=== PATIENT | male | born 1960 | race Caucasian/White ===

== ENCOUNTER 2022-06-09 11:45 | Emergency (ER) | payer MEDICARE, SELFPAY ==
[2022-06-09 11:58] VITALS: BP 125/62; PULSE 50; RESP 18; TEMP 36.6; O2SAT 97
--- NOTE | 2022-06-09 12:59 | ED.URI ---
HPI - URI/Sore Throat General Chief Complaint: Upper Respiratory Infection Stated Complaint: ear/nose/throat Time Seen by Provider: 06/09/22 12:52 Source: patient and RN notes reviewed Mode of arrival: ambulatory Limitations: no limitations History of Present Illness HPI Narrative: 61-year-old male presents with concern for right ear pain, right dental pain. Reports he has had right upper anterior dental pain for ?a long time?. Reports in the last 2 days his your his started hurting. He reports history of chronic ear infections. He reports yesterday his lower anterior right tooth began to hurt. He reports he felt a knot underneath that tooth. He denies fever, aches, chills, sweats, sinus congestion or drainage, upper respiratory infection symptoms. MD elicited complaint: other (Ear pain, dental pain) Related Data Home Medications Medication Instructions Recorded Confirmed sildenafil 100 mg tablet 100 mg PO DIRECTED 06/09/22 06/09/22 Allergies Allergy/AdvReac Type Severity Reaction Status Date / Time No Known Allergies Allergy Verified 06/09/22 12:04 Review of Systems Review of Systems: CONSTITUTIONAL: Denies malaise, chills, sweats, or fever. EYES: Denies visual changes, redness, or discharge. ENT: Denies rhinorrhea, congestion, sinus pain, and sore throat. Reports right otalgia, bilateral ear fullness or lower dental pain CARDIOVASCULAR: Denies chest pain, palpitations, or edema. RESPIRATORY: Denies cough. Denies dyspnea. GASTROINTESTINAL: Denies abdominal pain, nausea, vomiting, diarrhea SKIN: Denies rash or itching. MUSCULOSKELETAL: Denies myalgia. NEUROLOGIC: Denies headache. All systems reviewed & are unremarkable except as noted in HPI and below PMFSH Comments At time of signature, agree with nursing past medical, surgical, social and family history. There is no relevant family history pertinent to the presenting complaint Exam Narrative: GENERAL: Well-appearing, well-nourished, and in no acute distress. HEAD: Normocephalic EYES: PERRLA, conjunctivae clear ENT: Nares clear, no sinus tenderness. Mucous membranes moist. TM erythematous and bulging bilaterally; no tragal tenderness. Oropharynx not erythematous without lesions. Tonsils not enlarged and without exudate, no drooling, no hoarseness, no trismus, uvula midline. Many missing teeth, broken teeth, caries, no cheek swelling noted, small palpable tender knot noted below tooth number 27 NECK: Supple. No lymphadenopathy CHEST: Clear to auscultation, breath sounds equal. No wheezing, rhonchi, rales, or stridor. No respiratory distress, speaks in full sentences. HEART: Regular rate and rhythm. No murmur heard. SKIN: Warm, dry, no rash. NEURO: Alert and oriented x3. PSYCH: Normal mood and affect Course Course Emergency Course: Patient is aware of diagnosis, understands and agrees to treatment plan. Anticipatory guidance given. Patient agrees to follow-up as directed and is aware of reasons to seek care at the emergency department. Portions of this record may have been created with voice recognition software Level of Care: Express Care Visit Vital Signs Vital signs: Vital Signs Temperature 97.9 F 06/09/22 11:58 Pulse Rate 50 L 06/09/22 11:58 Respiratory Rate 18 06/09/22 11:58 Blood Pressure 125/62 06/09/22 11:58 Pulse Oximetry 97 06/09/22 11:58 Oxygen Delivery Room Air 06/09/22 11:58 Temperature 97.9 F 06/09/22 11:58 Pulse Rate 50 L 06/09/22 11:58 Respiratory Rate 18 06/09/22 11:58 Blood Pressure 125/62 06/09/22 11:58 Pulse Oximetry 97 06/09/22 11:58 Oxygen Delivery Room Air 06/09/22 11:58 Reviewed. MDM - URI/Sore Throat MDM Narrative Medical decision making narrative: Differential diagnosis considered: Dental infection, bacterial infection, sands virus, strep pharyngitis, allergic rhinitis, upper respiratory tract infection, sinusitis, rhinosinusitis, nasopharyngitis. viral pharyngitis, otitis m
== END 2022-06-09 13:03 | disposition home or self-care (01) ==
PROVIDERS: Emergency Provider Nurse Practitioner; PCP Internal Medicine
DX: H66.93 Otitis media, unspecified, bilateral (principal); K04.7 Periapical abscess without sinus; Z95.5 Presence of coronary angioplasty implant and graft; I38 Endocarditis, valve unspecified
CPT/HCPCS: 99203; G0463

== ENCOUNTER 2023-06-01 13:16 | Emergency (ER) | payer MEDICARE, SELFPAY ==
--- NOTE | ~2023-06-01 | XR_ITS ---
EXAMINATION: XR chest 2V DATE: 06/01/2023 14:27 INDICATION: Cough. TECHNIQUE: Frontal and lateral views of the chest were obtained on 3 radiographs. COMPARISON: Chest 2 views 11/29/2015 FINDINGS: There are airspace opacities in right upper lobe and lingula. A calcified right lung nodule is consistent with old granulomatous disease. No pleural effusion or pneumothorax. The heart size is normal. IMPRESSION: 1. Airspace opacities in right upper lobe and lingula, consistent with pneumonia. Reviewed, dictated and finalized at location A. IMPRESSION: 1. Airspace opacities in right upper lobe and lingula, consistent with pneumoni a.
[2023-06-01 13:23] VITALS: BP 123/64; PULSE 68; RESP 16; TEMP 36.7; O2SAT 97
[2023-06-01 13:28] VITALS: BP 123/64; PULSE 68; RESP 16; TEMP 36.7; O2SAT 97
--- NOTE | 2023-06-01 14:15 | ED.GENADULT ---
HPI - General Adult General Chief complaint: Upper Respiratory Infection Stated complaint: Fever/Cough/ear Pain Source: patient Mode of arrival: ambulatory Limitations: no limitations History of Present Illness HPI narrative: Patient presents for evaluation of sick symptoms. He has a history of mastoiditis and indicates he has had two mastoidectomies. He also reports a history of reconstructive surgery of his right tympanic membrane. He has issues where he feels like his ears need ?pop?. He indicates last year he was treated for a respiratory infection. He was given antibiotics which also seem to treat a dental infection at the same time. The majority of his symptoms improved however he felt like antibiotic duration of therapy was not long enough. He has had some chronic respiratory symptoms since that time. Over last 10 days he has experienced a fever, productive cough of green sputum, wheezing, and a ?gurgling? sensation on the right side of his chest. Feels like his left ear needs to pop. He denies any nausea, vomiting, diarrhea. He smokes a few cigarettes per day. He indicates he has the ?beginning stages of COPD . No recent sick contacts to his knowledge. He states his current symptoms are consistent with those he had in the past with walking pneumonia . Related Data Home Medications Medication Instructions Recorded Confirmed carbamazepine 200 mg tablet mg 06/01/23 clopidogrel 75 mg tablet mg 06/01/23 escitalopram oxalate 10 mg tablet mg 06/01/23 ezetimibe 10 mg tablet mg 06/01/23 levothyroxine 50 mcg tablet mcg 06/01/23 risperidone 1 mg tablet mg 06/01/23 sildenafil 100 mg tablet mg 06/01/23 trazodone 150 mg tablet mg 06/01/23 Allergies Allergy/AdvReac Type Severity Reaction Status Date / Time No Known Allergies Allergy Verified 06/09/22 12:04 Review of Systems Review of Systems: CONSTITUTIONAL: Reports fever. Denies chills, or sweats. EYES: Denies visual changes, redness, or discharge. ENT: Reports sensation that his left ear needs to pop. Reports chronic hearing deficits on the right. CARDIOVASCULAR: Denies chest pain, palpitations, or edema. RESPIRATORY: Reports cough, wheezing, and ?gurgling sensation? in his chest. GASTROINTESTINAL: Denies abdominal pain, nausea, vomiting, or diarrhea. GENITOURINARY: Denies dysuria or hematuria. SKIN: Denies rash or itching. MUSCULOSKELETAL: Denies back pain, joint pain, or myalgia. NEUROLOGIC: Denies headache, numbness, dizziness, or weakness. PSYCHIATRIC: Denies anxiety or depression. [facility] Past Medical History Medical History (Updated 06/01/23 @ 14:56 by MITCH Freire, ) Bipolar disorder Cholesteatoma COPD (chronic obstructive pulmonary disease) Mastoiditis Surgical History Surgical History History of mastoidectomy Family History Family History Mother Family history non-contributory Social History Social History Smoking packs per day: 0.1 Smoking cigarettes per day: 2.0 Smoking status: Current every day smoker Substance use: current Substance use type: marijuana Last use: former use of cocaine-last used over 35 yrs ago Living arrangements: alone Gender identity (if verbalized by the patient): Male Spiritual care concerns: No Exam Narrative: GENERAL: Well-appearing, well-nourished, and in no acute distress. HEAD: Normocephalic, atraumatic. EYES: PERRLA and EOMI. ENT: Nares clear, no rhinorrhea or epistaxis. Mucous membranes moist. Oropharynx without tonsillar hypertrophy exudate or other lesions. There is opacification noted to left tympanic membrane NECK: Supple. No adenopathy or masses. No carotid bruits or JVD CHEST: Cough present on exam. Wheezing and rales present bilaterally. HEART: Regular rate and rhythm. N
== END 2023-06-01 15:00 | disposition home or self-care (01) ==
PROVIDERS: Emergency Provider Nurse Practitioner; PCP Internal Medicine
DX: J18.9 Pneumonia, unspecified organism (principal); J44.9 Chronic obstructive pulmonary disease, unspecified; F17.210 Nicotine dependence, cigarettes, uncomplicated; Z79.899 Other long term (current) drug therapy
CPT/HCPCS: 71046; 99213; G0463

== ENCOUNTER 2024-01-17 15:40 | Emergency (ER) | payer MEDICARE, SELFPAY ==
--- NOTE | ~2024-01-17 | XR_ITS ---
EXAMINATION: XR chest 2V DATE: 01/17/2024 16:21 INDICATION: Cough. TECHNIQUE: Frontal and lateral views of the chest were obtained. COMPARISON: Chest 2 views 06/01/2023 FINDINGS: A calcified left lung nodule is consistent with old granulomatous disease. No pleural effus ion or pneumothorax. The heart size is normal. There is an expansile lytic lesion of right sixth rib. IMPRESSION: 1. Expansile lytic lesion of right sixth rib, consistent with metastatic disease versus multiple myel yudelka. Chest CT with contrast is recommended. Reviewed, dictated and finalized at location B. IMPRESSION: 1. Expansile lytic lesion of right sixth rib, consistent with metastatic diseas e versus multiple myeloma. Chest CT with contrast is recommended.
[2024-01-17 15:48] VITALS: BP 108/56; PULSE 64; RESP 20; TEMP 36.3; O2SAT 96
--- NOTE | 2024-01-17 15:59 | ED.URI ---
HPI - URI/Sore Throat General Chief Complaint: Upper Respiratory Infection Stated Complaint: Chest Pain/Cough Time Seen by Provider: 01/17/24 16:21 Source: patient, RN notes reviewed and old records reviewed Mode of arrival: ambulatory Limitations: no limitations History of Present Illness HPI Narrative: 63 year old male presents to express care with complaints of some wheezing, cough which is productive states gurgling in his chest, nasal drainage and congestion with sinus pressure and also has felt feverish. Patient reports that he had pneumonia in May and doesn't think it ever went completely away states increased symptoms for past 3-4 days. Patient continues to smoke does report beginning stages of COPD. Patient states that he has taken some Mucinex without improvement MD elicited complaint: fever, cough, rhinorrhea and nasal congestion Pertinent past history: pneumonia Onset (ago): day(s) (increased symptoms past 3-4 days) Consistency: constant Severity: moderate Able to tolerate fluids by mouth: Yes Treatments prior to arrival: other (Mucinex) Related Data Home Medications Medication Instructions Recorded Confirmed carbamazepine 200 mg tablet mg 06/01/23 clopidogrel 75 mg tablet mg 06/01/23 escitalopram oxalate 10 mg tablet mg 06/01/23 ezetimibe 10 mg tablet mg 06/01/23 levothyroxine 50 mcg tablet mcg 06/01/23 risperidone 1 mg tablet mg 06/01/23 sildenafil 100 mg tablet mg 06/01/23 trazodone 150 mg tablet mg 06/01/23 Allergies Allergy/AdvReac Type Severity Reaction Status Date / Time No Known Allergies Allergy Verified 06/09/22 12:04 Review of Systems Review of Systems: CONSTITUTIONAL: Reports malaise, chills, sweats, felt feverish EYES: Denies visual changes, redness, or discharge. ENT: Reports rhinorrhea, congestion, sinus pain, no otalgia and no sore throat. CARDIOVASCULAR: Denies chest pain, palpitations, or edema. RESPIRATORY: Reports productive cough.? Denies acute dyspnea, states gurgling in his chest GASTROINTESTINAL: Denies abdominal pain, nausea, vomiting, diarrhea SKIN: Denies rash or itching. MUSCULOSKELETAL: Denies myalgia. NEUROLOGIC: Denies headache. All systems reviewed & are unremarkable except as noted in HPI and below PMFSH Past Medical History Medical History Bipolar disorder Cholesteatoma COPD (chronic obstructive pulmonary disease) Elevated cholesterol Hypertension Mastoiditis Surgical History Surgical History History of heart artery stent History of mastoidectomy Family History Family History Mother Family history non-contributory Social History Social History Smoking packs per day: 0.1 Smoking cigarettes per day: 2.0 Smoking status: Current every day smoker Substance use: current Substance use type: marijuana Last use: former use of cocaine-last used over 35 yrs ago Living arrangements: alone Gender identity (if verbalized by the patient): Male Spiritual care concerns: No Comments At time of signature, agree with nursing past medical, surgical, social and family history. There is no relevant family history pertinent to the presenting complaint Exam Narrative: GENERAL: chronic ill-appearing, well-nourished, and in no acute distress. HEAD: Normocephalic EYES: PERRLA, conjunctivae clear ENT: Nares clear, turbinates edematous and erythematous, clear discharge with sinus pressure. Mucous membranes moist. TM pearly tomlinson with dull light reflex bilaterally; no tragal tenderness. Oropharynx erythematous without lesions. Tonsils not enlarged and without exudate, no drooling, no hoarseness, no trismus, uvula midline. post nasal drainage poor dentition NECK: Supple. No lymphadenopathy CHEST: Scattered wheezing on auscultation, breath sounds equal. positive for wheezing, no rhonchi, rales, or stridor. No respiratory distress, speaks in full sentences.no tachypnea SAO2 96% on room air HEART: Regular rate and rhythm. No murmur heard. SKIN: Warm, dry, no rash. NEURO: Alert and oriented x3. PSYCH: Normal mood and affect Course Course Emergency Course: Patient is aware of diagnosis, understands and agrees to treatment plan.? Anticipatory guidance given.? Patient agrees to follow-up as directed and is aware of reasons to seek care at the emergency department. Portions of this record may have been created with voice recognition software Level of Care: Express Care Visit Vital Signs Vital signs: Vital Signs Temperature 36.3 C L 01/17/24 15:48 Pulse Rate 64 01/17/24 15:48 Respiratory Rate 20 01/17/24 15:48 Blood Pressure 108/56 L 01/17/24 15:48 Pulse Oximetry 96 01/17/24 15:48 Oxygen Delivery Room Air 01/17/24 15:48 Temperature 36.3 C L 01/17/24 15:48 Pulse Rate 64 01/17/24 15:48 Respiratory Rate 20 01/17/24 15:48 Blood Pressure 108/56 L 01/17/24 15:48 Pulse Oximetry 96 01/17/24 15:48 Oxygen Delivery Room Air 01/17/24 15:48 Reviewed MDM - URI/Sore Throat MDM Narrative Medical decision making narrative: Differential diagnosis considered: Hatch virus, strep pharyngitis, allergic rhinitis, upper respiratory tract infection, sinusitis, rhinosinusitis, nasopharyngitis. viral pharyngitis, otitis media, otitis externa, pneumonia, bronchitis, viral cough syndrome, viral syndrome, and influenza.? Exam findings show no acute concerns or changes; patient is non-toxic appearing and is in no distress.? Patient is appropriate for outpatient treatment and follow-up. Differential Diagnosis Differential diagnosis: Likely upper respiratory infection, sinusitis, viral infection, bronchitis and other (pneumonia) Medical Records Attestation: I reviewed the patient's medical records. Lab Data Attestation: I reviewed the patient's lab results. Imaging Data Attestation: I personally reviewed and interpreted this imaging study as follows: My impression: Lytic lesion of 6th rib possible metastatic disease or multiple myeloma recommend CT scan of chest Radiologist's impression: [place] [address] XRay Report Signed Patient: John Spain : 1960 MR#: [id number] Age: 63 Acct:[id number] Loc: [facility] ADM Date: 01/17/24Attending Dr: Ordering Physician: Purnima Warner APRN Date of Service: 01/17/24 Procedure(s): XR chest 2V Accession Number(s): [id number] cc: Aleida, Chacorta Westbrook MD; Purnima Warner APRN~ EXAMINATION: XR chest 2V DATE: 01/17/2024 16:21 INDICATION: Cough. TECHNIQUE: Frontal and lateral views of the chest were obtained. COMPARISON: Chest 2 views 06/01/2023 FINDINGS: A calcified left lung nodule is consistent with old granulomatous disease. No pleural effusion or pneumothorax. The heart size is normal. There is an expansile lytic lesion of right sixth rib. IMPRESSION: 1. Expansile lytic lesion of right sixth rib, consistent with metastatic disease versus multiple myeloma. Chest CT with contrast is recommended. Reviewed, dictated and finalized at location B. Dictated By: Noé Singh MD 01/17/24 1621 Signed By: <Electronically signed by Noé Singh MD in OV> Critical Care Time Critical Care Time Critical Care Time: No Discharge Plan Discharge Clinical Impression: Acute bronchitis Patient Disposition: Home, Self-Care Condition: Stable Instructions: Antibiotic Form, Acute Bronchitis (ED) Additional Instructions: Increase fluids especially juices and water [id number] cough and cold medicine of your choice for your symptoms Prescription cough medicine as directed--caution drowsiness and no driving or alcohol Cough tablets as directed for cough--do not bite, chew or suck on--swallow whole Continue your inhaler/nebulizer as directed Steroids as directed--take with food heat to the face 20-30 minutes 4-6 times a day for pain Salt water gargles, throat lozenges or throat sprays as desired Antibiotic as directed--finished the medication Patient to follow-up with primary care per provider due to abnormal chest x-ray with recommendation for CT scan Prescriptions: New azithromycin 250 mg tablet See Rx Instructions .ROUTE .COMPLEX Qty: 6 0RF Rx Instructions: For 250 mg dose pack: take 500 mg today (day 1), then 250 mg for 4 days (days 2-5) prednisone 20 mg tablet 20 mg PO BID Qty: 10 0RF albuterol sulfate 90 mcg/actuation HFA aerosol inhaler 2 puff inhalation QID PRN (Reason: shortness of breath or wheezing) Qty: 6.7 0RF No Action clopidogrel 75 mg tablet sildenafil 100 mg tablet carbamazepine 200 mg tablet levothyroxine 50 mcg tablet trazodone 150 mg tablet risperidone 1 mg tablet escitalopram oxalate 10 mg tablet ezetimibe 10 mg tablet Follow-up/Referrals: Aleida,Chacorta Westbrook MD [Primary Care Provider] - Time of Disposition: 17:02 Quality Donnell Coma Scale Eyes: Open Verbal: Oriented and Alert Motor: Follows Commands [place] Coma Total Score: 15
== END 2024-01-17 17:10 | disposition home or self-care (01) ==
PROVIDERS: Emergency Provider Registered Nurse; PCP Internal Medicine
DX: J20.9 Acute bronchitis, unspecified (principal); I10 Essential (primary) hypertension; J44.9 Chronic obstructive pulmonary disease, unspecified; E78.00 Pure hypercholesterolemia, unspecified; F17.210 Nicotine dependence, cigarettes, uncomplicated; F12.90 Cannabis use, unspecified, uncomplicated; Z95.5 Presence of coronary angioplasty implant and graft
CPT/HCPCS: 71046; 99213; G0463